=== PATIENT | female | born 1980 | race Caucasian/White ===

== ENCOUNTER 2018-01-05 10:05 | Emergency (ER) | payer BC, OTHER ==
[2018-01-05 10:34] VITALS: BP 152/100
--- NOTE | 2018-01-05 10:40 | UC ---
Headache HPI - HPI Summary HPI Summary: 37-year-old otherwise healthy female presents with 1 week worth of intermittent global headache. She states that this began one week ago on with a mild headache that lasted throughout the day. It persisted and worsened. It is associated with nausea and vomiting on that date. She denies any trauma to the head or any neurologic symptoms to include numbness/weakness, difficulty with speech, vision or balance. There is family history for migraine headaches but she describes this headache is intermittent, tingly and involving the entire head. At present, her symptoms are mild and mostly tingly in nature. No other family or pets are ill in the home or experiencing headaches. - History Of Current Complaint Chief Complaint: UCHeadache Stated Complaint: HEADACHE Time Seen by Provider: 01/05/18 10:21 Hx Obtained From: Patient Hx Last Menstrual Period: 12/24/11 Pain Intensity: 2 - Allergies/Home Medications Allergies/Adverse Reactions: Allergies Allergy/AdvReac Type Severity Reaction Status Date / Time No Known Allergies Allergy Verified 01/05/18 10:34 Home Medications: Home Medications Ibuprofen [Advil Migraine] 1,000 mg PO ONCE 01/05/18 [History Confirmed 01/05/18 ] PMH/Surg Hx/FS Hx/Imm Hx Previously Healthy: Yes - Surgical History Surgical History: Yes Surgery Procedure, Year, and Place: Nov [facility]. Lithotripsy Dec 2008 - Family History Known Family History: Positive: Other - Pancreatic neuroendocrine tumor and father, type 1 diabetes and eldest - Social History Occupation: Employed Full-time Alcohol Use: Occasionally Substance Use Type: None Smoking Status (MU): Never Smoked Tobacco - Immunization History Most Recent Influenza Vaccination: 02/22/13 Most Recent Tetanus Shot: unknown Most Recent Pneumonia Vaccination: Unknown Review of Systems All Other Systems Reviewed And Are Negative: Yes Constitutional: Negative: Fever Skin: Negative: Rash Eyes: Negative: Blurred Vision, Diplopia, Eye Redness ENT: Positive: Negative Respiratory: Positive: Negative Gastrointestinal: Positive: Negative Musculoskeletal: Positive: Negative Neurological: Positive: Headache. Negative: Weakness, Paresthesia, Numbness Physical Exam Triage Information Reviewed: Yes Appearance: Well-Appearing, No Pain Distress, Well-Nourished Vital Signs: Initial Vital Signs Temp 98.9 F 01/05/18 10:21 Pulse 72 01/05/18 10:21 Resp 18 01/05/18 10:21 BP 152/100 01/05/18 10:21 Pulse Ox 100 01/05/18 10:21 Eyes: Positive: Conjunctiva Clear, Other: - Globes soft, temporal arteries nontender. ENT: Positive: Normal ENT inspection, Hearing grossly normal Neck: Positive: Supple, Nontender. Negative: Nuchal Rigidity Respiratory: Positive: Lungs clear Cardiovascular: Positive: RRR Musculoskeletal: Positive: Strength Intact, ROM Intact Neurological: Positive: Alert, Muscle Tone Normal, Other: - Cranial nerves intact. Psychological Exam: Normal Headache Course/Dx - Course Course Of Treatment: Blood pressure elevated the patient relatively asymptomatic at present. No prior history of blood pressure issues other than -induced hypertension. Nonsmoker. Minimal headache at this point without trauma. Treat symptomatically and refer to primary care. - Differential Dx/Diagnosis Differential Diagnosis/HQI/PQRI: Migraine, Subarachnoid Hemorrhage, Temporal Arteritis, Tension Headache, Viral Syndrome, Other - Carbon monoxide poisoning Provider Diagnosis: Generalized headache, Elevated blood pressure reading Discharge - Sign-Out/Discharge Documenting (check all that apply): Patient Departure All imaging exams completed and their final reports reviewed: No Studies - Discharge Plan Condition: Improved Disposition: HOME Prescriptions: Promethazine TAB* [Phenergan Tab*] 25 mg PO Q6H PRN #20 tab PRN Reason: headache/nausea Patient Education Materials: Acute Headache (ED), Hypertension (ED) Referrals: [facility] [Outside] [facility] [Outside] Additional Instructions: Call today to schedule [facility] They are located in the hospital and can see you in the time it takes she to get a primary care physician. Primary care referral line was also given and they can help set you up with a regular doctor. Return with persistent, worsened or severe headache, numbness/weakness, visual changes, confusion or other symptoms. Prescribed medication is good for headaches and nausea and can be taken with a bottle of water, caffeine, ibuprofen and/or Benadryl when symptoms are more significant. Medication does cause drowsiness. - Billing Disposition and Condition Condition: IMPROVED Disposition: Home - Attestation Statements Document Initiated by Gabe: No
== END 2018-01-05 10:45 | disposition home or self-care (01) ==
LOC: UCEAST 10:05
DX: R51 Headache (principal); R03.0 Elevated blood-pressure reading, without diagnosis of hypertension
CPT/HCPCS: 99202; G0463